=== PATIENT | male | born 1975 ===

== ENCOUNTER 2017-10-19 15:11 | Emergency (ER) | payer OTHER ==
[2017-10-19 15:16] VITALS: TEMP 98.6
[2017-10-19 16:11] LABS: BASO # 0.1 K/uL (0.0-0.2); BASO % 1.2 % (0.0-2.0); EOS # 0.1 K/uL (0.0-0.7); HEMOGLOBIN 17.8 g/dL (12.0-18.0); LYMPH % 29.5 % (20.0-40.0); MEAN CELL VOLUME 93.7 fl (80.0-94.0); MEAN CORPUSCULAR HEMOGLOBIN 34.9 pg (27.0-31.0); MEAN CORPUSCULAR HGB CONC 37.2 g/dL (33.0-37.0); MEAN PLATELET VOLUME 10.1 fl (7.2-11.7); MONO # 0.2 K/uL (0.0-0.8); MONO % 2.9 % (0.0-10.0); NEUT # 4.4 K/uL (1.8-7.0); NEUT % 64.4 % (50.0-75.0); NRBC % 0.3 % (0.0-0.0); RBC 5.09 Mil/uL (4.40-5.90); RED CELL DISTRIBUTION WIDTH 13.2 % (11.5-14.5); WHITE BLOOD COUNT 6.8 K/uL (4.8-10.8)
--- NOTE | 2017-10-19 16:44 | ED PDOC ---
HPI: Psych/Substance Abuse Time Seen by Provider: 10/19/17 15:24 Chief Complaint (Nursing): Alcohol Ingestion Chief Complaint (Provider): Alcohol Ingestion ED Caveat: Intoxicated History Per: EMS History/Exam Limitations: intoxication Onset/Duration Of Symptoms: Mins (prior to arrival) Current Symptoms Are (Timing): Still Present Additional Complaint(s): 41 year old male presents to the emergency room via EMS for an evaluation of alcohol intoxication after he was found trying to get into a car that was not his own. History cannot be obtained due to patient's intoxication. There was no reports of injury, falls, or head trauma. The patient denies suicidal and homicidal ideation. PMD: none provided Past Medical History Reviewed: Historical Data, Nursing Documentation, Vital Signs Vital Signs: Last Vital Signs Temp 98.6 F 10/19/17 15:13 Pulse 86 10/19/17 15:13 Resp 17 10/19/17 15:13 BP 119/69 10/19/17 15:13 Pulse Ox 97 10/19/17 15:13 - Medical History PMH: Depression, Hypercholesterolemia - Surgical History Surgical History: Hernia Repair - Family History Family History: States: Unknown Family Hx - Social History Alcohol: > 2 Drinks/Day - Allergies Allergies/Adverse Reactions: Allergies Allergy/AdvReac Type Severity Reaction Status Date / Time No Known Allergies Allergy Verified 10/19/17 15:15 Review of Systems Review Of Systems: ROS cannot be obtained secondary to pt's inabilty to answer questions. Physical Exam - Reviewed Nursing Documentation Reviewed: Yes Vital Signs Reviewed: Yes - Physical Exam Appears: Positive for: Non-toxic, No Acute Distress Head Exam: Positive for: ATRAUMATIC, NORMAL INSPECTION, NORMOCEPHALIC Skin: Positive for: Normal Color, Warm, Dry Eye Exam: Positive for: Normal appearance Neck: Positive for: Normal, Painless ROM Cardiovascular/Chest: Positive for: Regular Rate, Rhythm. Negative for: Murmur Respiratory: Positive for: Normal Breath Sounds. Negative for: Respiratory Distress Gastrointestinal/Abdominal: Positive for: Normal Exam, Soft. Negative for: Tenderness Extremity: Positive for: Normal ROM. Negative for: Deformity, Other (trauma to upper / lower) Neurologic/Psych: Positive for: Alert, ice cream scooper II-XII (formation intact). Negative for: Motor/Sensory Deficits - Laboratory Results Result Diagrams: 10/19/17 16:03 10/19/17 16:03 - ECG O2 Sat by Pulse Oximetry: 97 (RA) Pulse Ox Interpretation: Normal Medical Decision Making Medical Decision Making: Initial Impression: Intoxicated Time: 15:27 Initial Plan: --Alcohol Serum --CMP --Lipase --CBC with differential --Glucose, blood, POC Scribe Attestation: Documented by Radha Bowden, acting as a scribe for Tamir Yeh III, DO Provider Scribe Attestation: All medical entries made by the Scribe were at my direction and personally dictated by me. I have reviewed the chart and agree that the record accurately reflects my personal performance of the history, physical exam, medical decision making, and the department course for this patient. I have also personally directed, reviewed, and agree with the discharge instructions and disposition. Disposition - Clinical Impression Clinical Impression: Alcohol abuse - Patient ED Disposition Is Patient to be Admitted: Transfer of Care - Disposition Referrals: [facility] [Outside] [facility] [Outside] Disposition: Transfer of Care Disposition Time: 19:00 Condition: IMPROVED Additional Instructions: follow up with your primary doctor in 1-2 days return to the ED with any worsening or concerning symptoms Instructions: Alcohol Use - When Is Drinking a Problem?, Alcohol Poisoning Forms: [employer] ([place]an) Patient Signed Over To: Audelia Crawford Handoff Comments: pending sobriety
[2017-10-19 16:46] LABS: ALB/GLOB RATIO 1.1 (1.0-2.1); ALBUMIN 4.5 g/dL (3.5-5.0); ALT/SGPT 45 U/L (21-72); AST/SGOT 74 U/L (17-59); BLOOD UREA NITROGEN 14 mg/dl (9-20); CALCIUM 8.5 mg/dL (8.4-10.2); GFR AFRICAN-AMERICAN > 60; GFR NON-AFRICAN AMERICAN > 60; LIPASE 175 U/L (23-300)
--- NOTE | 2017-10-19 19:36 | ED PDOC ---
- Laboratory Results Result Diagrams: 10/19/17 16:03 10/19/17 16:03 - ECG O2 Sat by Pulse Oximetry: 97 (RA) Medical Decision Making Medical Decision Making: Time: 19:00 Patient care endorsed from Dr. Tamir Yeh III to Dr. Audelia Crawford pending clinical sobriety. 2100 pt ambulating, steady gait. states friend coming to pick him up. vitals stable, alert and oriented. stable for dc. Scribe Attestation: Documented by Radha Bowden, acting as a scribe for Audelia Crawford MD Provider Scribe Attestation: All medical entries made by the Scribe were at my direction and personally dictated by me. I have reviewed the chart and agree that the record accurately reflects my personal performance of the history, physical exam, medical decision making, and the department course for this patient. I have also personally directed, reviewed, and agree with the discharge instructions and disposition. Disposition - Clinical Impression Clinical Impression: Alcohol abuse - POA Present On Arrival: None - Disposition Referrals: [facility] [Outside] [facility] [Outside] Disposition: Routine/Home Disposition Time: 21:00 Condition: IMPROVED Additional Instructions: follow up with your primary doctor in 1-2 days return to the ED with any worsening or concerning symptoms Instructions: Alcohol Use - When Is Drinking a Problem?, Alcohol Poisoning Forms: [employer] (Telugu)
[2017-10-19 20:10] VITALS: BP 108/64; PULSE 88; RESP 18
[2017-10-20 02:26] VITALS: O2SAT 97
== END 2017-10-19 20:23 | disposition home or self-care (01) ==
LOC: H.ER 15:11
DX: F10.129 Alcohol abuse with intoxication, unspecified (principal); Z86.59 Personal history of other mental and behavioral disorders; E78.00 Pure hypercholesterolemia, unspecified